=== PATIENT | female | born 1940 | race Caucasian/White ===

== ENCOUNTER 2019-02-14 22:33 | Emergency (ER) | payer MEDICARE ==
[~2019-02-14] VITALS: Ht 160 cm; Wt 65.8 kg
[2019-02-14] MEDS ORDERED: CEPH500 PO (22:45)
[2019-02-14] MEDS ORDERED: OMEPRAZOLE20 MG PO (22:45)
[2019-02-14] MEDS ORDERED: ASPI325 PO (22:45)
[2019-02-14] MEDS ORDERED: GABA300 PO (22:46)
[2019-02-14] MEDS ORDERED: MELO7.5 PO (22:46)
[2019-02-14] MEDS ORDERED: Oxycodone HCl5 M1 PO (22:47)
== END 2019-02-15 02:49 | disposition home or self-care (01) ==
LOC: ER 22:33
DX: T84.021A Dislocation of internal left hip prosthesis, initial encounter (principal); W18.30XA Fall on same level, unspecified, initial encounter; Z79.899 Other long term (current) drug therapy; Z79.82 Long term (current) use of aspirin
CPT/HCPCS: 27265; 73501; 73502; 96374-59; 96376-59; 99283-25; J2704; J3010; J7030

== ENCOUNTER 2020-12-17 06:10 | Day surgery (SDC) | payer MEDICARE ==
[~2020-12-17] VITALS: Ht 162.6 cm; Wt 70.8 kg
[~2020-12-17 06:10] MED LIST: ASPI325 PO; CEPH500 PO; GABA300 PO; MELO7.5 PO; OMEPRAZOLE20 MG PO; Oxycodone HCl5 M1 PO
[2020-12-17] MEDS ORDERED: AMLO5 PO (06:51)
== END 2020-12-17 08:19 | disposition home or self-care (01) ==
LOC: ORSCSDS 06:10
PROVIDERS: Internal Medicine Gastroenterology
PROC: 0DB58ZX Excision of Esophagus, Via Natural or Artificial Opening Endoscopic, Diagnostic (ICD-10-PCS; principal; 2020-12-17 07:30)
PROC: 0D758ZZ Dilation of Esophagus, Via Natural or Artificial Opening Endoscopic (ICD-10-PCS; principal; 2020-12-17 07:30)
DX: R13.10 Dysphagia, unspecified (principal); R12 Heartburn; K44.9 Diaphragmatic hernia without obstruction or gangrene; K22.2 Esophageal obstruction; I10 Essential (primary) hypertension; Z87.891 Personal history of nicotine dependence
CPT/HCPCS: 88305; C1726; J2405; J2704; J7120

== ENCOUNTER → 2022-04-05 | Outpatient (CLI) | payer MEDICARE ==
[~2022-04-05] MED LIST changes: +AMLO5 PO
== END | disposition home or self-care (01) ==
LOC: LAB SHORT 11:47 → PLD 11:47
DX: C44.519 Basal cell carcinoma of skin of other part of trunk (principal)
CPT/HCPCS: 88305

== ENCOUNTER → 2022-04-18 | Outpatient (CLI) | payer MEDICARE | LOC: LAB SHORT 08:27 → LAB 08:27 | DX: C44.519 Basal cell carcinoma of skin of other part of trunk (principal); L82.1 Other seborrheic keratosis | CPT/HCPCS: 88305 ==